=== PATIENT | female | born 1990 | race Two or more races ===

== ENCOUNTER 2019-01-30 17:38 | Emergency (ER) | payer SELFPAY ==
[~2019-01-30] VITALS: Ht 167.6 cm; Wt 48.0 kg
[2019-01-30 17:59] VITALS: BP 118/71
== END 2019-01-30 18:50 | disposition left against medical advice (07) ==
LOC: ER 17:38
DX: Z53.21 Procedure and treatment not carried out due to patient leaving prior to being seen by health care provider (principal); I10 Essential (primary) hypertension

== ENCOUNTER 2020-01-16 14:27 | Emergency (ER) | payer SELFPAY | END 2020-01-16 15:40 | disposition left against medical advice (07) | LOC: ER 15:19 | DX: R53.1 Weakness (principal); Z53.21 Procedure and treatment not carried out due to patient leaving prior to being seen by health care provider ==